=== PATIENT | male | born 1995 | race African-American/Black ===

== ENCOUNTER 2017-07-04 15:46 | Emergency (ER) | payer BC, OTHER ==
[~2017-07-04] VITALS: Ht 175.3 cm; Wt 108.9 kg
[2017-07-04 17:35] VITALS: BP 156/96
[2017-07-04] MEDS ORDERED: PROMETHAZINE HCL 25 MG/ML 1ML IM ONE (17:45)
[2017-07-04] MEDS ORDERED: SODIUM CHLORIDE 0.9% 1,000 ML IV ONE (18:30)
[2017-07-04] MEDS ORDERED: KETOROLAC TROMETH 30 MG/ML 1ML VIAL IV ONE (18:45)
[2017-07-04] MEDS ORDERED: ONDANSETRON HCL 4 MG/2 ML VIAL IV ONE (18:45)
[2017-07-04 18:51] LABS: Urine Bacteria NONE SEEN /hpf (None Seen); Urine Blood Negative /uL (Negative); Urine Mucus MODERATE (None Seen); Urine Specific Gravity 1.042 (1.001-1.035); Urine WBC 3 /hpf (0 - 3)
[2017-07-04 19:11] LABS: Basophils # (auto) 0.1 uL; Basophils % (auto) 0.4 % (0.0-2.0); Eosinophils # (auto) 0.1 uL; Eosinophils % (auto) 0.5 % (0.0-7.0); Hematocrit 47.1 % (41.0-53.0); Hemoglobin 16.2 g/dL (13.5-17.5); Lymphocytes # (auto) 1.2 uL; Lymphocytes % (auto) 5.9 % (10.0-50.0); Mean Corpuscular Hgb Conc. 34.4 g/dL (32.0-36.0); Mean Corpuscular Volume 90.1 fL (80.0-100.0); Monocytes % (auto) 5.1 % (0.0-12.0); Neutrophils % (auto) 88.1 % (37.0-80.0); Platelet Count (auto) 202 10^3/uL (140-450); Red Blood Cells 5.23 10^6/uL (4.5-5.90); Red Cell Distribution Width 12.7 % (11.8-14.3); White Blood Cell 20.4 10^3/uL (4.4-10.8)
[2017-07-04 19:16] LABS: Albumin 4.4 g/dL (3.4-5.0); BUN/Creatinine Ratio 15.8; Calcium 9.1 mg/dL (8.5-10.1); Potassium 3.2 mmol/L (3.5-5.1)
[2017-07-04 19:19] LABS: Bilirubin, Total 0.5 mg/dL (0.2-1.0); Total Protein 8.4 g/dL (6.4-8.2)
[2017-07-04] MEDS ORDERED: cefTRIAXone 1GM/10ml IVPUSH 10 ML IV ONE (20:30)
== END 2017-07-04 21:47 | disposition home or self-care (01) ==
LOC: ER 15:46
DX: K56.7 Ileus, unspecified (principal); J45.909 Unspecified asthma, uncomplicated
CPT/HCPCS: 36415; 74176; 80053; 81001; 85025; 96361; 96372; 96374; 96375; 99285; J1885; J2405; J2550; J7030

== ENCOUNTER 2017-07-06 08:32 | Inpatient (IN) | payer BC ==
[~2017-07-06] VITALS: Ht 170.2 cm; Wt 105.0 kg
[2017-07-06 08:59] LABS: Basophils # (auto) 0.1 uL; Basophils % (auto) 0.5 % (0.0-2.0); Eosinophils # (auto) 0.3 uL; Eosinophils % (auto) 1.8 % (0.0-7.0); Hematocrit 46.3 % (41.0-53.0); Hemoglobin 15.8 g/dL (13.5-17.5); Lymphocytes % (auto) 13.1 % (10.0-50.0); Mean Corpuscular Volume 91.1 fL (80.0-100.0); Monocytes # (auto) 0.9 uL; Monocytes % (auto) 6.2 % (0.0-12.0); Neutrophils # (auto) 11.8 uL; Neutrophils % (auto) 78.4 % (37.0-80.0); Nucleated Red Blood Cells % 0.1 %; Platelet Count (auto) 200 10^3/uL (140-450); Red Blood Cells 5.09 10^6/uL (4.5-5.90); Red Cell Distribution Width 13.1 % (11.8-14.3); White Blood Cell 15.1 10^3/uL (4.4-10.8)
[2017-07-06 09:24] LABS: Albumin 4.1 g/dL (3.4-5.0); BUN/Creatinine Ratio 12.1; Bilirubin, Total 0.3 mg/dL (0.2-1.0); Calcium 8.6 mg/dL (8.5-10.1); Potassium 3.3 mmol/L (3.5-5.1)
[2017-07-06 09:37] LABS: Urine WBC None Seen /hpf (0 - 3)
[2017-07-06 09:55] LABS: Urine Amorphous Crystal MOD /hpf (None Seen); Urine Bacteria NONE SEEN /hpf (None Seen); Urine Blood Negative /uL (Negative); Urine Specific Gravity 1.017 (1.001-1.035)
[2017-07-06 10:02] LABS: Alcohol, Urine < 3.0 mg/dL (0-5); Amphetamine Screen, Urine NEGATIVE (NEGATIVE); Barbiturate Scree,Urine NEGATIVE (NEGATIVE); Benzodiazephine Screen, Urine NEGATIVE (NEGATIVE); Cannabinoid Screen, Urine POSITIVE (NEGATIVE); Cocaine Screen, Urine NEGATIVE (NEGATIVE); Opiate Scree,Urine NEGATIVE (NEGATIVE); Phencyclidine Screen, Urine NEGATIVE (NEGATIVE)
[2017-07-06] MEDS ORDERED: SODIUM CHLORIDE 0.9% 1,000 ML IV ONE ×2 (10:08)
[2017-07-06] MEDS ORDERED: PIPERACILLIN-TAZOB 3.375GM 100 ML IV ONE (10:15)
[2017-07-06] MEDS ORDERED: MORPHINE SULFATE 4 MG/ML SYR/VIAL IV ONE (10:15)
[2017-07-06] MEDS ORDERED: ONDANSETRON HCL 4 MG/2 ML VIAL ONE (10:22)
[2017-07-06] MEDS ORDERED: ONDANSETRON HCL 4 MG/2 ML VIAL IV ONE (10:30)
[2017-07-06] MEDS ORDERED: IPRATROPIUM BROM 0.5 MG/2.5ML INH SOL NEB PRN (11:45)
[2017-07-06] MEDS ORDERED: ALBUTEROL SULF 2.5 MG/0.5ML(0.5%) NEB SOLN NEB PRN (11:45)
[2017-07-06] MEDS: SOD CHL 0.45% WITH 20MEQ KCL 1,000 ML IV SCH ×2 (11:45→22:56)
[2017-07-06] MEDS ORDERED: traMADol HCL 50 MG TAB PO PRN (11:45)
[2017-07-06] MEDS ORDERED: POTASSIUM CHL 10% (20 MEQ/15ML) 15ml ORAL SOLN PO ONE (11:45)
[2017-07-06 12:36] VITALS: BP 154/97
[2017-07-06] MEDS ORDERED: PROMETHAZINE HCL 25 MG/ML 1ML ONE (13:51)
[2017-07-06] MEDS ORDERED: LORazepam 2MG/ML-1ML VIAL IV PRN (14:00)
[2017-07-06] MEDS ORDERED: PANTOPRAZOLE 40 MG/10 ML VIAL IV ONE (14:00)
[2017-07-06] MEDS: PROMETHAZINE HCL 25 MG/ML 1ML IV PRN (14:10)
[2017-07-06] MEDS: KETOROLAC TROMETH 30 MG/ML 1ML VIAL IV PRN (14:11)
[2017-07-06] MEDS: ONDANSETRON HCL 4 MG/2 ML VIAL IV PRN (14:45)
[2017-07-06] MEDS: MORPHINE SULFATE 4 MG/ML SYR/VIAL IV PRN (15:36)
[2017-07-06] MEDS ORDERED: ALPRAZolam 0.25 MG TAB PO PRN (15:45)
[2017-07-06] MEDS ORDERED: CEPH500C PO (17:48)
[2017-07-06] MEDS ORDERED: ONDA8TAB6 PO (17:48)
[2017-07-06 22:00] VITALS: BP 123/62
[2017-07-07 05:00] VITALS: BP 136/68
[2017-07-07] MEDS: PROMETHAZINE HCL 25 MG/ML 1ML IV PRN (06:10)
[2017-07-07 06:25] LABS: BUN/Creatinine Ratio 6.7; Calcium 8.5 mg/dL (8.5-10.1); Potassium 3.4 mmol/L (3.5-5.1)
[2017-07-07] MEDS: MORPHINE SULFATE 4 MG/ML SYR/VIAL IV PRN (06:28)
[2017-07-07] MEDS: SOD CHL 0.45% WITH 20MEQ KCL 1,000 ML IV SCH (07:45)
[2017-07-07 09:00] VITALS: BP_SYST 110; BP_SYST 141; BP_DIAS 69; BP_DIAS 74
[2017-07-07] MEDS ORDERED: PANTOPRAZOLE 40 MG/10 ML VIAL IV SCH (10:00)
[2017-07-07] MEDS: ONDANSETRON HCL 4 MG/2 ML VIAL IV PRN (10:25)
[2017-07-07] MEDS: KETOROLAC TROMETH 30 MG/ML 1ML VIAL IV PRN (10:25)
[2017-07-07] MEDS ORDERED: POTASSIUM CHL 20 Meq TABLET PO ONE (12:00)
[2017-07-07 12:38] VITALS: BP 141/74
== END 2017-07-07 13:25 | disposition home or self-care (01) | DRG 439 ==
LOC: ER 08:32 → OVERFLOW 08:33 → WEST WING 17:19
PROVIDERS: ADMIT Internal Medicine; ATTEND Internal Medicine
DX: K85.90 Acute pancreatitis without necrosis or infection, unspecified (principal); R65.10 Systemic inflammatory response syndrome (SIRS) of non-infectious origin without acute organ dysfunction; E66.9 Obesity, unspecified; E87.6 Hypokalemia; F12.90 Cannabis use, unspecified, uncomplicated; G43.A0 Cyclical vomiting, in migraine, not intractable; J45.909 Unspecified asthma, uncomplicated; T40.7X5A Adverse effect of cannabis (derivatives), initial encounter; Y92.89 Other specified places as the place of occurrence of the external cause; Z72.0 Tobacco use; Z68.36 Body mass index [BMI] 36.0-36.9, adult
CPT/HCPCS: 36415; 74176; 80048; 80053; 80307; 81001; 82150; 83605; 83690; 85025; 87040; 87081; 96361; 96365; 96375; C9113; J1885; J2405; J2543